=== PATIENT | male | born 1980 | race African-American/Black ===

== ENCOUNTER 2020-03-26 00:31 | Emergency (ER) | payer SELFPAY ==
[2020-03-26 00:31] VITALS: BP 149/99; PULSE 81; RESP 16; TEMP 36.7; BMI 26.5
--- NOTE | 2020-03-26 01:00 | ED.DCSUM_ITS ---
- ER Visit Summary Date of Service: 03/26/20 Chief Complaint: Right ear pain History of Present Illness: The patient is a 39 M with no primary care physician. He reports his right ear pain began yesterday. Is an aching pain is 1010 at worst 9-10 currently. Is worsened by nothing. Is taken Tylenol and NS AIDs with minimal relief. Denies any fever, chills, or other complaints. Physical Examination: Vitals: Stable. Afebrile. General: Well-nourished and well-developed. Head: Normocephalic atraumatic. HEENT: Left TM is normal. Pain with movement of the right pinna and tragus. The external auditory canal shows exudate present with mild swelling. I am unable to visualize his TM. No mastoid tenderness. Neck: Supple, no lymphadenopathy. No JVD. Nontender. Cardiovascular: Regular rate and rhythm. No murmurs. Respiratory: No respiratory distress. Clear to auscultation bilaterally. Abdominal: Soft, nontender, nondistended, normal bowel sounds. No guarding, rebound, or peritoneal signs. Back: Nontender. Extremities: Nontender, no edema. Skin: Normal color, no rash. Neurologic: Alert and oriented ?3. Cranial nerves II through XII are intact. Normal strength and sensation. Psych: Normal affect. Emergency Department Course and Treatment: Patient was treated with morphine IM and Zofran p.o. He was given amoxicillin p.o. He had Cortisporin otic placed in his ear. Treatment Plan: Patient be discharged with [place] and amoxicillin as I am unable to visualize his TM and rule out an otitis media. He will is also instructed to continue to use the Cortisporin otic and follow-up with Dr. Jacinto in 1 week for another exam. Return to the emergency department for any worsening symptoms. Disposition: To home in improved and stable condition. Impression: 1 1. Acute otitis externa on right. This note was generated with [employer] dictation software. It may contain incorrect words, spelling, and punctuation that were not noted in review of the chart prior to signing ED Disposition - Plan for ED Patient: Disposition: Home or Assisted Living Instructions: ED Otitis Externa Prescriptions: Amoxicillin 500 mg PO TID #21 tab Prescription Printed Hydrocodone Bitart/Apap 5-325 [[place] 5MG-325MG] 1 tab PO Q4H PRN PRN 2 Days #10 tab PRN Reason: Pain Prescription Printed Referrals: Ant Jacinto MD [STAFF PHYSICIAN] - 1 Week if not improving
[2020-03-26] MEDS: Ondansetron ODT 4 MG Tablet PO (01:08)
[2020-03-26] MEDS: AMOXICILLIN 500 MG CAPSULE PO (01:09)
[2020-03-26] MEDS: morphine 8 MG/ML Syringe IM (01:10)
[2020-03-26] MEDS: Neomycin/Polymyxin/Dexameth 5ML OPTH.BTL 4 DRP OTIC (01:21)
== END 2020-03-26 01:24 | disposition home or self-care (01) ==
LOC: ED 01:08
PROVIDERS: Emergency Provider Emergency Medicine
DX: H60.501 Unspecified acute noninfective otitis externa, right ear (principal)
CPT/HCPCS: 99283

== ENCOUNTER → 2021-06-22 09:25 | Outpatient (CLI) | payer SELFPAY ==
[2021-06-22 11:01] LABS: Rubella IgG Reactive (Nonreactive)
[2021-06-29 16:09] LABS: QNTFERON TB Mitogen Value > 10.00 IU/mL (.); QNTFERON TB1+ Ag Value > 10.00 IU/mL (.); QNTFERON TB2+ Ag Value > 10.00 IU/mL (.)
[2021-06-30 23:33] LABS: QNTIFERON TB Positive Criteria Positive (Negative); Rubeola IgG Ab > 300.0 AU/mL (Immune >16.4); V-Zoster IgG (Immunity) 884 index (Immune >165)
== END ==
DX: Z01.84 Encounter for antibody response examination (principal)
CPT/HCPCS: 36415; 86480; 86735; 86762; 86765; 86787

== ENCOUNTER 2021-07-13 13:43 | Emergency (ER) | payer SELFPAY ==
[2021-07-13 13:44] VITALS: BP 143/97; PULSE 73; RESP 18; TEMP 37; O2SAT 99; BMI 26.6
--- NOTE | 2021-07-13 14:17 | EX.ED.DYSGE1 ---
HPI History of Present Illness Chief Complaint: Chest Other Informant: patient Narrative Narrative: Patient presents to the ER requesting a chest x-ray. 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 He was told to get a chest x-ray every so often to ensure no evidence of acute disease. He states he was vaccinated for this as a child. He presents today just requesting a chest x-ray. He states he has not been able to establish a primary care physician anywhere. He has no other complaints. PFSH PFSH Medical History no medical history no medical history Home Medications amoxicillin 500 mg PO TID #21 tab 03/26/20 [Rx Last Taken Unknown] Allergy/AdvReac Type Severity Reaction Status Date / Time hydroxychloroquine AdvReac Rash Verified 07/13/21 13:44 [From Plaquenil] Social History Smoking Status: Never smoker ROS ROS ED Constitutional Constitutional ED: Denies chills or fever(s) Eyes Eyes: Denies blurry vision ENT ENT ED: Denies rhinorrhea or sore throat Cardiovascular Cardiovascular: Denies chest pain or palpitations Respiratory/Chest Respiratory/Chest: Denies cough or dyspnea Gastrointestinal Gastrointestinal: Denies abdominal pain Genitourinary Genitourinary ED: Denies dysuria Musculoskeletal Musculoskeletal: Denies arthralgias or myalgias Neurologic Neurologic: Denies headache(s) Psychiatric Psychiatric: Denies anxiety or depression Allergic/Immunologic Allergic/Immunologic ED: Denies urticaria EXAM Physical Exam Const Vital Signs: 07/13/21 13:44 07/13/21 14:05 Temperature 98.6 F Temperature Source Temporal Pulse Rate 73 Respiratory Rate 18 Respiratory Effort Normal Non-Labored Respiratory Pattern Normal Blood Pressure 143/97 H Blood Pressure Mean 112 Pulse Ox 99 Oxygen Delivery Method Room Air Positive well nourished and well developed General Appearance ED: well developed Eyes PERRL and EOMs intact bilaterally Neck supple Chest Wall inspection of chest normal and palpation of chest normal Resp normal respiratory effort and clear to auscultation bilaterally Cardio regular rate and regular rhythm GI normal to inspection, nondistended, normoactive bowel sounds and non-tender Palpation: soft Extremity normal to inspection Neuro oriented x3 Sensorium / Orientation: alert Skin no rashes or lesions noted MDM MDM MDM Narrative Medical decision making narrative: Patient was counseled that this is not an appropriate use to the emergency room. He needs to establish a primary care physician. I advised him I would get the chest x-ray from this time but in the future he needs to go to a primary care physician. Radiography Diagnostic Testing: Clinical Impression(s) from Imaging Studies Chest X-Ray 07/13/21 14:33 IMPRESSION: Normal x-ray examination of the chest. Electronically Signed: Chandrakant Kennedy MD at 14:51 EST , Service support , Treatment and Re-Evaluation Comments:: 2 view x-ray per my interpretation is unremarkable. Radiologist rotation is reviewed. Patient is given pamphlet with provider directory so he can establish a primary care doctor locally. Discharge Plan Triage Chief Complaint: Chest Other ED Provider: Naila Michael Dx/Rx/DC Orders Clinical Impression: Well adult exam Prescriptions: No Action amoxicillin 500 MG tablet 500 mg PO TID Qty: 21 RF: 0 Primary Care Provider: Care Physician,No Primary Referrals: Care Physician,No Primary [Primary Care Provider] - Activity Restrictions/Additional Instructions: Your chest x-ray is unremarkable. A provider directory has been supplied to you so you can establish a primary care physician. Disposition Disposition: Home, Self Care
--- NOTE | 2021-07-13 14:33 | RAD_ITS ---
STUDY: X-RAY CHEST REASON FOR EXAM: Male, 40 years old. Positive TB test TECHNIQUE: PA and lateral views of the chest. COMPARISON: None. FINDINGS: The lungs are clear and expanded. There is no demonstrated pleural abnormality. Normal size heart. Normal mediastinum and juliette. Normal visualized pulmonary arteries. Normal visualized aortic arch and descending thoracic aorta. Normal visualized thoracic spine. Normal visualized ribs, clavicles, and shoulders. There is no demonstrated abnormality of the visualized soft tissue structures of the upper abdomen. RAD/Chest PA and Lateral IMPRESSION: Normal x-ray examination of the chest. Electronically Signed: Chandrakant Kennedy MD at 14:51 EST , Service support ,
== END 2021-07-13 15:10 | disposition home or self-care (01) ==
PROVIDERS: Emergency Provider Emergency Medicine
DX: Z11.1 Encounter for screening for respiratory tuberculosis (principal)
CPT/HCPCS: 71046; 99282

== ENCOUNTER 2021-11-26 12:33 | Outpatient (CLI) | payer SELFPAY | END 2021-11-26 23:59 | disposition home or self-care (01) | LOC: LABSPEC 12:35 | DX: D64.9 Anemia, unspecified (principal) | CPT/HCPCS: 82274 ==

== ENCOUNTER → 2022-04-17 | Outpatient (CLI) | payer SELFPAY ==
[2022-04-17 10:19] LABS: Anion Gap 5 (5-15); BUN 13 mg/dL (7-18); BUN/Creat Ratio 9.8 RATIO (10-20); Calcium,Total 9.2 mg/dL (8.5-10.1); Chloride 105 mmol/L (98-107); Creatinine, Serum 1.33 mg/dL (0.70-1.30); EST Glomerular Filtration Rate 63 mL/min (>60); Est Glom Filt Rate - Afr Amer 76 mL/min (>60); Glucose 120 mg/dL (74-106); Sodium Level 140 mmol/L (136-145)
== END | disposition home or self-care (01) ==
LOC: LAB 09:13
PROVIDERS: Visit Provider Nurse Practitioner Adult Health
DX: N28.9 Disorder of kidney and ureter, unspecified (principal)
CPT/HCPCS: 36415; 80048

== ENCOUNTER 2023-12-28 09:38 | Emergency (ER) | payer OTHER, SELFPAY ==
[2023-12-28 09:39] VITALS: BP 124/76; PULSE 78; RESP 16; TEMP 36.4; O2SAT 98
--- NOTE | 2023-12-28 09:52 | EDS_ITS ---
HPI History of Present Illness Chief Complaint: Lower Extremity Injury Informant: patient Narrative Narrative: Gradual onset of right foot and ankle pain that started day before yesterday during soccer. He was playing an aggressive game of soccer. He thinks he might remember kicking the ball funny and having a little bit of discomfort but he really started feeling discomfort after the game later, no major injuries. 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 It is right and lateral it is not the entire joint all the way around. No systemic symptoms or numbness/tingling. PFSH PFSH Medical History no medical history no medical history Home Medications amoxicillin 500 mg tablet 500 mg PO TID #21 tabs 03/26/20 [Rx Last Taken Unknown] Allergy/AdvReac Type Severity Reaction Status Date / Time hydroxychloroquine AdvReac Rash Verified 12/28/23 09:38 [From Plaquenil] Social History Smoking Status: Never smoker ROS ROS ED Constitutional Constitutional ED: Denies chills or fever(s) Musculoskeletal Musculoskeletal: Reports extremity pain; Denies neck pain Integumentary Denies Abrasions, rash or wounds Neurologic Neurologic: Denies paresthesias or weakness EXAM Physical Exam Const Vital Signs: 12/28/23 09:39 Temperature 97.6 F L Temperature Source Temporal Pulse Rate 78 Respiratory Rate 16 Blood Pressure 124/76 H Blood Pressure Mean 92 Pulse Ox 98 Oxygen Delivery Method Room Air Positive well nourished and well developed General Appearance ED: well developed and NAD Neck full ROM and supple Back/Spine normal ROM and normal to inspection Extremity Extremity Narrative: Tenderness is in the soft tissues just distal to the right lateral malleolus. The malleolus itself is nontender except for maybe at the very tip of it. There is no significant swelling around the bone. The rest of the tenderness is just posterior to the base of the fifth metatarsal and plantar to it. The medial malleolus is nontender. He has the ability to dorsiflex and plantarflex at the foot but relatively limited at extremes due to pain. Short arc range of motion is without any discomfort. No other foot bony tenderness. No tenderness of the proximal fibula. Neurovascularly intact distally. Neuro oriented x3, no focal motor deficits and no sensory deficits noted Sensorium / Orientation: alert Psych mental status grossly normal and thought process normal Skin no wounds Rashes: no rashes MDM MDM MDM Narrative Medical decision making narrative: Given location of the pain obtain three-view x-ray series of the right ankle as well as 3 view x-ray series of the right foot, both negative for any fracture or dislocation on my interpretation. Radiology in agreement. Patient was reassured, given NSAIDs, Aircast, he will be offered crutches. Radiography Diagnostic Testing: Clinical Impression(s) from Imaging Studies Ankle X-Ray 12/28/23 09:55 IMPRESSION: No acute bone or joint abnormality. Electronically Signed: Maximino Drew MD at 10:16 EDT , Foot X-Ray 12/28/23 09:55 IMPRESSION: No acute bone or joint abnormality. Electronically Signed: Maximino Drew MD at 10:16 EDT , Discharge Plan Triage Chief Complaint: Lower Extremity Injury ED Provider: Delvin Fontanez Dx/Rx/DC Orders Clinical Impression: Sprain of right ankle Instructions: ED Sprain Ankle W X Ray Prescriptions: No Action amoxicillin 500 MG tablet 500 mg PO TID Qty: 21 0RF Primary Care Provider: [facility] Talita Bolanos Referrals: [facility] Talita Bolanos [Primary Care Provider] - 10-14 Days if not better Disposition Disposition: Home, Self Care
--- NOTE | 2023-12-28 09:55 | RAD_ITS ---
EXAM: XR RIGHT FOOT COMPLETE, 3 OR MORE VIEWS CLINICAL INDICATION: pain lateral TECHNIQUE: Frontal, lateral and oblique views of the right foot. COMPARISON: No relevant prior studies available. FINDINGS: BONES/JOINTS: Hallux valgus deformity is present. No acute fracture or subluxation. Joint spaces are intact. Mild calcaneal spurring is present. SOFT TISSUES: Normal. No soft tissue swelling or gas. No radiopaque foreign body. RAD/Foot min 3 Views IMPRESSION: No acute bone or joint abnormality. Electronically Signed: Maximino Drew MD at 10:16 EDT ,
--- NOTE | 2023-12-28 09:55 | RAD_ITS ---
EXAM: XR RIGHT ANKLE COMPLETE, 3 OR MORE VIEWS CLINICAL INDICATION: INJURY TECHNIQUE: Frontal, lateral and oblique views of the right ankle. COMPARISON: No relevant prior studies available. FINDINGS: BONES/JOINTS: No acute fracture or subluxation. Mild dorsal calcaneal enthesopathy. SOFT TISSUES: Normal. No soft tissue swelling or gas. No radiopaque foreign body. RAD/Ankle min 3 Views IMPRESSION: No acute bone or joint abnormality. Electronically Signed: Maximino Drew MD at 10:16 EDT ,
[2023-12-28] MEDS: Naproxen 250 MG Tablet 500 MG PO (09:58)
[2023-12-28 10:57] VITALS: BP 128/64; PULSE 75; RESP 18; TEMP 36.2; O2SAT 100
== END 2023-12-28 10:58 | disposition home or self-care (01) ==
PROVIDERS: Emergency Provider Emergency Medicine; Visit Provider Emergency Medicine
DX: S93.401A Sprain of unspecified ligament of right ankle, initial encounter (principal); Y93.66 Activity, soccer
CPT/HCPCS: 73610; 73630; 99283

== ENCOUNTER → 2024-04-27 | Outpatient (CLI) | payer OTHER, SELFPAY ==
[2024-04-27 13:03] LABS: Absolute Neutrophil Count 1.6 X10^3/uL (2.0-7.7); Basophil# 0.04 X10^3/uL; Basophil% 0.9 % (0-1); Eosinophil# 0.35 X10^3/uL; Eosinophils% 7.7 % (0-5); Hematocrit 41.1 % (40-54); Hemoglobin 12.9 g/dL (13.0-16.5); Lymphocyte % 44.1 % (19-41); Mean Corp Hgb Conc 31.4 g/dL (32-36); Mean Corpuscular Hgb 21.5 pg (27.0-32.0); Mean Corpuscular Volume 68.6 fL (80-94); Mean Platelet Vol. 10.2 fl (6.2-12.0); Monocyte# 0.52 X10^3/uL; Monocyte% 11.5 % (0-10); NRBC Flagged by Analyzer 0 % (0-5); Neutrophil # 1.62 X10^3/uL (2.7-7.7); Neutrophil % 35.6 % (47-70); Platelet Count 289 K/mm3 (150-450); RBC Distribution Width CV 14.9 % (11.6-14.6); RBC Distribution Width SD 35.8 fl (35.1-43.9); Red Blood Count 5.99 M/mm3 (4.6-6.2); White Blood Count 4.5 K/mm3 (4.4-11.0)
[2024-04-27 14:45] LABS: Microalbumin,Random Urine 7.1 mg/L (NO RANGE EST.)
[2024-04-27 15:04] LABS: ALB/GLOB Ratio 0.9 RATIO (0.9-2.4); AST(SGOT) 49 U/L (15-37); Alanine Aminotransfer ALT/SGPT 81 U/L (16-61); Albumin, Serum 3.6 g/dL (3.2-5.0); Alkaline Phosphatase 81 U/L (45-117); Anion Gap 6 (5-15); BUN 6 mg/dL (7-18); BUN/Creat Ratio 5.3 RATIO (10-20); Calcium,Total 9.7 mg/dL (8.5-10.1); Chloride 104 mmol/L (98-107); Cholesterol 214 mg/dL (200); Creatinine, Serum 1.14 mg/dL (0.70-1.30); EST Glomerular Filtration Rate 74 mL/min (>60); Est Glom Filt Rate - Afr Amer 90 mL/min (>60); Globulin 4.1 g/dL (2.2-4.2); Glucose 152 mg/dL (74-106); High Density Lipoprotein 44 mg/dL; Potassium 4.1 mmol/L (3.5-5.1); Protein, Total 7.7 g/dL (6.4-8.2); Sodium Level 138 mmol/L (136-145); Triglycerides 117 mg/dL; Very Low Density Lipoprotein 23 mg/dL (5-40)
[2024-04-29 09:07] LABS: Iron 126 ug/dL (65-175); Iron Binding Capacity,Total 317 ug/dL (250-450); PERCENT IRON SATURATION 39.7 % (15.0-55.0)
== END | disposition home or self-care (01) ==
LOC: VSLAB 09:30
PROVIDERS: PCP Nurse Practitioner Family; Visit Provider Nurse Practitioner Family
DX: D64.9 Anemia, unspecified (principal); E11.65 Type 2 diabetes mellitus with hyperglycemia
CPT/HCPCS: 36415; 80053; 80061; 82043; 83540; 83550; 84443; 85025

== ENCOUNTER → 2024-08-11 | Outpatient (CLI) | payer OTHER, SELFPAY ==
[2024-08-11 13:35] LABS: AST(SGOT) 28 U/L (15-37); Alanine Aminotransfer ALT/SGPT 49 U/L (16-61); Albumin, Serum 3.7 g/dL (3.2-5.0); Alkaline Phosphatase 76 U/L (45-117); Anion Gap 3 (5-15); BUN 11 mg/dL (7-18); BUN/Creat Ratio 8.3 RATIO (10-20); Calcium,Total 9.3 mg/dL (8.5-10.1); Chloride 107 mmol/L (98-107); Cholesterol 241 mg/dL (200); Creatinine, Serum 1.32 mg/dL (0.70-1.30); EST Glomerular Filtration Rate 62 mL/min (>60); Est Glom Filt Rate - Afr Amer 76 mL/min (>60); Globulin 3.8 g/dL (2.2-4.2); Glucose 158 mg/dL (74-106); High Density Lipoprotein 46 mg/dL; Potassium 4.1 mmol/L (3.5-5.1); Protein, Total 7.5 g/dL (6.4-8.2); Sodium Level 139 mmol/L (136-145); Triglycerides 75 mg/dL; Very Low Density Lipoprotein 15 mg/dL (5-40)
== END | disposition home or self-care (01) ==
LOC: VSLAB 10:58
PROVIDERS: PCP Nurse Practitioner Family; Visit Provider Nurse Practitioner Family
DX: E11.65 Type 2 diabetes mellitus with hyperglycemia (principal); E78.5 Hyperlipidemia, unspecified
CPT/HCPCS: 36415; 80053; 80061